=== PATIENT | male | born 1980 | race Caucasian/White ===

== ENCOUNTER 2025-10-23 12:31 | Emergency (ER) | payer MEDICAID ==
[~2025-10-23] VITALS: Ht 182.9 cm; Wt 93.2 kg
--- NOTE | 2025-10-23 12:45 | Physician Documentation ---
History of Present Illness ~ Stated Complaint: 5150 Time Seen by MD: 12:38 OK to notify your PCP?: Yes Mode of Arrival: POV HPI 45-year-old male patient was brought to the emergency room by [facility] crisis team personal for suicidal ideation and danger to self. The patient denies any symptoms other than SI. Medication Reconciliation Allergies: Coded Allergies: No Known Allergies (Unverified , 10/23/25) Progress Results/Orders Results/Orders Orders - GIBSON ABBOTT MD 1799.11 (10/23/25 12:39) Close Observation Level (10/23/25 12:39) Covid19 Binax Poc Result Entry (10/23/25 12:39) Completed Orders - GIBSON ABBOTT MD Cbc/Diff (10/23/25 12:39) Drug Screen, Urine (10/23/25 12:39) Ethanol (10/23/25 12:39) BMP (10/23/25 12:39) Ua With Microscopic (10/23/25 12:53) Regular Diet (10/24/25 Breakfast) TSH (10/23/25 13:03) Vital Signs 10/23/25 10/23/25 10/23/25 10/23/25 12:47 12:59 18:44 19:29 Temp 98.0 98.4 Pulse 87 90 Resp 16 16 16 16 B/P (MAP) 144/93 126/62 (83) Pulse Ox 98 98 O2 Flow Rate 0 10/24/25 09:18 Resp 16 Laboratory Tests Test 10/23/25 12:42 10/23/25 12:53 10/23/25 13:03 SARS-CoV-2 Antigen (Rapid) Negative Urine Specimen Description Cln catch midstream Urine Color Yellow Urine Clarity Clear Urine pH 6.0 Urine Specific [place] 1.025 Urine Protein Negative Urine Glucose (UA) Negative Urine Ketones 15 H Urine Occult Blood Trace-intact Urine Nitrite Negative Urine Bilirubin Negative Urine Urobilinogen 0.2 Urine Leukocyte Esterase Negative Urine RBC 0-2 Urine WBC 0-4 Urine Squamous Epithelial Cells Few Urine Amorphous Urates 1+ Urine Bacteria Few Urine Hyaline Casts 0-3 Urine Fine Granular Casts 0-3 Urine Mucus Many Volume Urine Centrifuged 10 ml Urine Comment Urine Opiates Screen Negative Urine Methadone Screen Negative Urine Fentanyl Screen Negative Urine Barbiturates Screen Negative Urine Phencyclidine Screen Negative Urine Amphetamines Screen Negative Urine Benzodiazepines Screen Negative Urine Cocaine Screen Negative Urine Cannabinoids Screen Positive Drug Screen Comment White Blood Count 9.6 Red Blood Count 4.12 L Hemoglobin 13.2 L Hematocrit 38.0 L Mean Corpuscular Volume 92.0 Mean Corpuscular Hemoglobin 32.0 H Mean Corpuscular Hemoglobin Concent 34.8 Red Cell Distribution Width 12.8 Platelet Count 293 Mean Platelet Volume 7.3 L Neutrophils (%) (Auto) 76.7 H Lymphocytes (%) (Auto) 15.2 L Monocytes (%) (Auto) 7.2 Eosinophils (%) (Auto) 0.4 Basophils (%) (Auto) 0.5 Neutrophils # (Auto) 7.4 Lymphocytes # (Auto) 1.5 Monocytes # (Auto) 0.7 Eosinophils # (Auto) 0.0 Basophils # (Auto) 0.1 CBC Comment Sodium Level 143 Potassium Level 3.9 Chloride Level 104 Carbon Dioxide Level 31.7 Anion Gap 7 L Blood Urea Nitrogen 15 Creatinine 0.77 Estimated GFR/1.73 m2 > 90 BUN/Creatinine Ratio 19.5 Glucose Level 92 Calcium Level 8.3 L Albumin 4.0 Thyroid Stimulating Hormone (TSH) 0.80 Chemistry Comments Ethyl Alcohol Level < 10 Medical Decision Making Additional information obtaine: other Findings During the physical examination, the findings suggestive of acute life- threatening condition such as JVD, tracheal deviation, acidotic breathing, noisy stridorous breath sounds, pulses paradoxus, muffled heart sounds, unequal breath sounds, abdominal rigidity and rebound tenderness, focal neurological deficits, cool clammy skin, severe hypotension, severe tachycardia or bradycardia are absent. Reviewed lab results and they are all within normal range. Patient is medically cleared for crisis team/mental health evaluation and treatment.. Differential Dx:Considerations: Include: Alcohol abuse, Anxiety, Bipolar disorder, Conversion disorder, Depression, Substance abuse, Suicidal Departure Disposition: 30 STILL A PATIENT Impression: Primary Impression: Suicidal ideation Discharge Instructions: Suicidal Feelings: How to Help Yourself Referrals: NO PRIMARY CARE PROVIDER (PCP) Signature Scribe Signature: x Attestation: GIBSON Lacy MD Oct 23, 2025 12:45
[2025-10-23 13:15] LABS: LEUKOCYTE ESTERASE ,URINE NEGATIVE (Neg); NITRITES, URINE NEGATIVE (Neg); OCCULT BLOOD,URINE TRACE-INTACT (Neg)
[2025-10-23 13:15] LABS: MEAN PLATELET VOLUME 7.3 FL (7.4-10.4); RED CELL DISTRIBUTION WIDTH 12.8 % (11.5-14.5)
[2025-10-23 13:16] LABS: UA COLLECTION TYPE CLN CATCH MIDSTREAM
[2025-10-23 13:21] LABS: CREATININE 0.77 MG/DL (0.60-1.10); TOTAL CARBON DIOXIDE 31.7 MMOL/L (24-32); eCRCL 132 ML/MIN; eGFR > 90 ML/MIN
[2025-10-23 13:22] LABS: SQUAMOUS EPITHELIAL CELL,UR FEW /LPF (FEW); URINE AMPHETAMINE SCREEN NEGATIVE (Neg); URINE BARBITUATE SCREEN NEGATIVE (Neg); URINE BENZODIAZEPINES SCREEN NEGATIVE (Neg); URINE CANNABINOID SCREEN POSITIVE (Neg); URINE COCAINE SCREEN NEGATIVE (Neg); URINE METHADONE SCREEN NEGATIVE (Neg); URINE OPIATE SCREEN NEGATIVE (Neg); URINE PHENCYCLIDINE SCREEN NEGATIVE (Neg)
[2025-10-23 13:24] LABS: AMORPHOUS URATES 1+; FINE GRANULAR CAST 0-3 /LPF (NEGATIVE); HYALINE CASTS 0-3 /LPF (NEGATIVE); MUCUS STRANDS MANY /LPF (Neg)
[2025-10-23 13:30] LABS: ETHANOL < 10 MG/DL (<10)
[2025-10-23 18:44] VITALS: BP 126/62; PULSE 90; TEMP 98.4; O2SAT 98
[2025-10-24 09:18] VITALS: RESP 16
== END 2025-10-24 14:26 ==
LOC: ER 12:32
DX: R45.851 Suicidal ideations (principal); Z20.822 Contact with and (suspected) exposure to COVID-19; Z79.899 Other long term (current) drug therapy
CPT/HCPCS: 36415; 80048; 80305; 80320; 81001; 84443; 85025; 87811; 99285